=== PATIENT | female | born 1975 | race Caucasian/White ===

== ENCOUNTER 2022-01-11 10:50 | Outpatient (CLI) | payer OTHER, SELFPAY ==
[2022-01-11 10:58] LABS: Appearance Urine Clear (Clear); Bilirubin Urine Negative (Negative); Blood Urine Negative (Negative); Color Urine Yellow (Yellow); Glucose Urine Negative (Negative); Ketones Urine Negative (Negative); Leukocyte Esterase Urine Negative (Negative); Nitrite Urine Negative (Negative); Protein Urine Negative (Negative); Specific Gravity Urine 1.015 (1.000-1.030); Urobilinogen Urine 0.2 (0.2-1.0)
== END 2022-01-11 10:51 | disposition home or self-care (01) ==
LOC: KYNREF 10:51
PROVIDERS: PCP Nurse Practitioner Family; Visit Provider Nurse Practitioner Family
DX: R30.0 Dysuria (principal)
CPT/HCPCS: 81003; 87086

== ENCOUNTER 2023-04-11 13:55 | Outpatient (CLI) | payer OTHER, SELFPAY | END 2023-04-11 13:56 | disposition home or self-care (01) | LOC: KYNREF 13:57 | PROVIDERS: PCP Nurse Practitioner Family; Visit Provider Nurse Practitioner Family | DX: N39.0 Urinary tract infection, site not specified (principal); B96.20 Unspecified Escherichia coli [E. coli] as the cause of diseases classified elsewhere | CPT/HCPCS: 81015; 87086; 87186 ==

== ENCOUNTER 2023-11-01 10:15 | Outpatient (RCR) | payer OTHER, SELFPAY | END 2024-01-25 10:00 | disposition home or self-care (01) | PROVIDERS: PCP Nurse Practitioner Family; Visit Provider Nurse Practitioner Family | DX: H81.11 Benign paroxysmal vertigo, right ear (principal); Z51.89 Encounter for other specified aftercare | CPT/HCPCS: 97140; 97161 ==

== ENCOUNTER 2024-03-26 07:49 | Outpatient (CLI) | payer SELFPAY | END 2024-03-26 07:50 | disposition home or self-care (01) | LOC: KYNREF 07:50 | PROVIDERS: PCP Nurse Practitioner Family; Visit Provider Nurse Practitioner Family | DX: R30.0 Dysuria (principal) | CPT/HCPCS: 87086 ==